=== PATIENT | female | born 1970 | race Caucasian/White ===

== ENCOUNTER 2016-09-25 02:04 | Emergency (ER) | payer MEDICARE, OTHER ==
[2016-09-25] MEDS ORDERED: OXYCODONE-ACETAMINOPHEN 5-325 MG TABLET PO ONE (03:14)
[2016-09-25] MEDS ORDERED: TRAMADOL HCL 50 MG TABLET PO ONE (03:24)
--- NOTE | 2016-09-25 03:30 | ER Document Report ---
ED General - General Chief Complaint: Ankle Injury Stated Complaint: ANKLE PAIN Mode of Arrival: Wheelchair Information source: Patient Notes: 46-year-old female history of multiple sclerosis presents with complaints of right ankle pain after she fell. Patient denies any other injuries. Patient has a history of a left fibular fracture TRAVEL OUTSIDE OF THE [place] IN LAST 30 DAYS: No - HPI Onset: Just prior to arrival Onset/Duration: Sudden Quality of pain: Achy Severity: Moderate Pain Level: 2 Associated symptoms: Body/muscle aches, Other Exacerbated by: Movement Relieved by: Denies Similar symptoms previously: Yes Recently seen / treated by doctor: Yes - Related Data Allergies/Adverse Reactions: Tegaderm Allergy (Uncoded 12/26/14 10:41) Rash Past Medical History - Social History Smoking Status: Never Smoker Cigarette use (# per day): No Chew tobacco use (# tins/day): No Smoking Education Provided: No Family History: Reviewed & Not Pertinent Patient has suicidal ideation: No Patient has homicidal ideation: No - Past Medical History Cardiac Medical History: Denies: Hx Coronary Artery Disease, Hx Heart Attack, Hx Hypertension Pulmonary Medical History: Denies: Hx Asthma, Hx Bronchitis, Hx COPD, Hx Pneumonia Neurological Medical History: Reports: Hx Seizures - started 2004, on medications. Denies: Hx Cerebrovascular Accident Renal/ Medical History: Denies: Hx Peritoneal Dialysis Musculoskeltal Medical History: Denies Hx Arthritis - Immunizations Hx Diphtheria, Pertussis, Tetanus Vaccination: Yes Review of Systems - Review of Systems Notes: REVIEW OF SYSTEMS: CONSTITUTIONAL : Denies fever, chills, or sweats. Denies recent illness. EENT: Denies eye, ear, throat, or mouth pain or symptoms. Denies nasal or sinus congestion or discharge. Denies throat, tongue, or mouth swelling or difficulty swallowing. CARDIOVASCULAR: Denies chest pain. Denies palpitations or racing or irregular heart beat. Denies ankle edema. RESPIRATORY: Denies cough, cold, or chest congestion. Denies shortness of breath, difficulty breathing, or wheezing. GASTROINTESTINAL: Denies abdominal pain or distention. Denies nausea, vomiting , or diarrhea. Denies blood in vomitus, stools, or per rectum. Denies black, tarry stools. Denies constipation. GENITOURINARY: Denies difficulty urinating, painful urination, burning, frequency, blood in urine, or discharge. FEMALE GENITOURINARY: Denies vaginal bleeding, heavy or abnormal periods, irregular periods. Denies vaginal discharge or odor. MUSCULOSKELETAL: Admits to ankle pain on the right SKIN: Denies rash, lesions or sores. HEMATOLOGIC : Denies easy bruising or bleeding. LYMPHATIC: Denies swollen, enlarged glands. NEUROLOGICAL: Denies confusion or altered mental status. Denies passing out or loss of consciousness. Denies dizziness or lightheadedness. Denies headache. Denies weakness or paralysis or loss of use of either side. Denies problems with gait or speech. Denies sensory loss, numbness, or tingling. Denies seizures. PSYCHIATRIC: Denies anxiety or stress. Denies depression, suicidal ideation, or homicidal ideation. ALL OTHER SYSTEMS REVIEWED AND NEGATIVE. Dictation was performed using [email or web address] voice recognition software PHYSICAL EXAMINATION: GENERAL: Well-appearing, well-nourished and in no acute distress. HEAD: Atraumatic, normocephalic. EYES: Pupils equal round extraocular movements intact, conjunctiva are normal. ENT: Nares patent NECK: Normal range of motion LUNGS: No respiratory distress Musculoskeletal: Right ankle is edematous tender to palpation worst in the right lateral malleolar region NEUROLOGICAL: Normal speech, normal gait. PSYCH: Normal mood, normal affect. SKIN: Warm, Dry, normal turgor, no rashes or lesions noted. Physical Exam - Vital signs Vitals: Temp Pulse Resp BP Pulse Ox 97.7 F 77 18 103/58 L 99 09/25/16 02:31 09/25/16 02:31 09/25/16 02:31 09/25/16 02:31 09/25/16 02:31 Course - Re-evaluation Re-evalutation: 09/25/16 03:35 Fractures noted of the fibular. Patient given pain control splint placed patient instructed to follow-up with her own orthopedic physician immediately for evaluation After performing a Medical Screening Examination, I estimate there is LOW risk for INTRACRANIAL HEMORRHAGE, UNSTABLE SPINE FRACTURE, CENTRAL CORD SYNDROME, CAUDA EQUINA, THORACIC AORTIC DISSECTION, PNEUMOTHORAX, PERFORATED BOWEL, RUPTURED ABDOMINAL AORTIC ANEURYSM, ACUTE TENDON RUPTURE, COMPARTMENT SYNDROME, or OPEN FRACTURE, thus I consider the discharge disposition reasonable. Also, there is no evidence or peritonitis, sepsis, or toxicity. I have reevaluated this patient multiple times and no significant life threatening changes are noted. The patient and I have discussed the diagnosis and risks, and we agree with discharging home to follow-up with their primary doctor with the understanding that symptoms and presentations can change. We also discussed returning to the Emergency Department immediately if new or worsening symptoms occur. We have discussed the symptoms which are most concerning (e.g., bloody stool, fever, changing or worsening pain, vomiting) that necessitate immediate return. - Vital Signs Vital signs: Temp Pulse Resp BP Pulse Ox 97.7 F 77 18 103/58 L 99 09/25/16 02:31 09/25/16 02:31 09/25/16 02:31 09/25/16 02:09/25/16 02:31 - Diagnostic Test Radiology reviewed: Image reviewed, Reports reviewed - Right fibular fracture Procedures - Immobilization Right Ankle Time completed: 03:36 Pre-Proc Neuro Vasc Exam: Normal Immobilizer type: Short Leg Posterior Performed by: PCT Post-Proc Neuro Vasc Exam: Normal Alignment checked and good: Yes Discharge - Discharge Clinical Impression: Closed fibular fracture Qualifiers: Encounter type: initial encounter Fibula location: distal Fracture morphology: unspecified fracture morphology Laterality: right Qualified Code(s): S82.831A - Other fracture of upper and lower end of right fibula, initial encounter for closed fracture Ankle injury Qualifiers: Encounter type: initial encounter Laterality: right Qualified Code(s): S99.911A - Unspecified injury of right ankle, initial encounter Condition: Stable Disposition: HOME, SELF-CARE Instructions: Ankle Stirrup Splint ([facility]) Additional Instructions: Please follow-up with your orthopedic physician in 1-2 days or return immediately if there are any other concerns Prescriptions: Tramadol HCl 50 mg PO Q8 #30 tablet
[2016-09-25 08:33] VITALS: BP 108/52
== END 2016-09-25 04:10 | disposition home or self-care (01) ==
LOC: ER 02:04
PROC: 2W3QX1Z Immobilization of Right Lower Leg using Splint (ICD-10-PCS; principal; 2016-09-25)
DX: S82.831A Other fracture of upper and lower end of right fibula, initial encounter for closed fracture (principal); W01.0XXA Fall on same level from slipping, tripping and stumbling without subsequent striking against object, initial encounter; Y93.89 Activity, other specified; G35 Multiple sclerosis; Z88.8 Allergy status to other drugs, medicaments and biological substances
CPT/HCPCS: 99283; 73610; 29515; A9270

== ENCOUNTER → 2017-08-26 | Outpatient (CLI) | payer MEDICARE ==
--- NOTE | 2017-08-26 11:15 | RADIOLOGY REPORT (SQ) ---
EXAM DESCRIPTION: MRI LT LOWER JOINT WITHOUT COMPLETED DATE/TIME: 08/26/2017 10:34 am REASON FOR STUDY: LEFT HIP PAIN (M25.552) M25.552 PAIN IN LEFT HIP COMPARISON: None. TECHNIQUE: Lefthip images acquired and stored on PACS. Multiplanar images to include fat sensitive s equences as T1, fluid sensitive sequences as T2/STIR and gradient echo sequences. Large FOV fat and f luid sensitive sequences include pelvis and opposite hip. LIMITATIONS: None. FINDINGS: BONE CORTEX AND MARROW: No generalized marrow replacement. No occult fracture. No worriso me bone lesions. LEFT HIP: FEMORAL HEAD: No occult fracture. No osteophytes or subchondral cysts. Normal sphericity of femoral h ead/neck junction. No acetabular dysplasia. No evidence femoroacetabular impingement. No significant effusion. ACETABULUM: No acetabular dysplasia. No subchondral cysts. LABRUM: No loss of cartilage or delamination. Labrum is intact. No paralabral cysts. TROCHANTER: Small trochanteric bursal effusion. There is edema/fluid at the insertions of the gluteu s medius and gluteus minimus, from trochanteric bursitis and inflammation. RIGHT HIP: Limited evaluation. No worrisome bone lesions. No significant effusion. Trace fluid in the trochanteric bursa with edema at the insertions of the gluteus medius and gluteus minimus on the greater trochanter. PELVIS, LOWER LUMBAR SPINE, SACROILIAC JOINTS: PELVIS : No insufficiency/stress fractures. No significant degenerative changes. Sacroiliac joints normal. L SPINE: No significant osteophytes or degenerative changes of the visualized lumbar spine. MUSCLES AND SOFT TISSUES: Adductors and piriformis normal. Abductors and greater trochanteric bursa n ormal without edema or fluid. Iliopsoas bursa without fluid. Hamstring attachments without edema or t ear. PELVIC SOFT TISSUES: Normal size uterus and ovaries. Incidental finding of 2.6 cm and 2.4 cm fundal uterine fibroids SCIATIC NERVE: Identified, without masses or abnormal signal. OTHER: No other significant finding. IMPRESSION: Trochanteric bursitis left greater than right TECHNICAL DOCUMENTATION: JOB ID: [id number]- All Rights Reserved Reading location - IP/workstation name: [email or web address] [id number]
== END ==
LOC: RAD 09:21
DX: M25.552 Pain in left hip (principal)

== ENCOUNTER 2018-02-07 13:12 | Emergency (ER) | payer MEDICARE ==
--- NOTE | 2018-02-07 15:07 | RADIOLOGY REPORT (SQ) ---
EXAM DESCRIPTION: ANKLE LEFT COMPLETE COMPLETED DATE/TIME: 02/07/2018 2:31 pm REASON FOR STUDY: injury COMPARISON: None. NUMBER OF VIEWS: Three views. TECHNIQUE: AP, lateral, and oblique radiographic images acquired of the left ankle. LIMITATIONS: None. FINDINGS: MINERALIZATION: Normal. BONES: There is a mildly displaced fracture at the medial malleolus. There is some mildly displaced spiral fracture at the distal fibula. There is mild widening of the tibiotalar joint. Bony spurs ar e seen at the calcaneus. SOFT TISSUES: There is diffuse soft tissue swelling at the ankle. IMPRESSION: Bimalleolar fracture at the left ankle with overlying soft tissue swelling. TECHNICAL DOCUMENTATION: JOB ID: [id number] 2010 [employer])- All Rights Reserved Reading location - IP/workstation name: [email or web address]
[2018-02-07] MEDS ORDERED: HYDROCODONE/ACETAMINOPHEN 5-325 MG (6 TAB/ER DISP) PO PRN (15:23)
--- NOTE | 2018-02-07 15:44 | ER Document Report ---
HPI - HPI Pain Level: 3 - CONSTITUTIONAL Notes: Patient with complaint of left ankle pain after suffering a mechanical fall at home. - REPRODUCTIVE Reproductive: DENIES: : Past Medical History - General Information source: Patient - Social History Smoking Status: Never Smoker Frequency of alcohol use: None Drug Abuse: None Family History: Reviewed & Not Pertinent - Past Medical History Cardiac Medical History: Denies: Hx Coronary Artery Disease, Hx Heart Attack, Hx Hypertension Pulmonary Medical History: Denies: Hx Asthma, Hx Bronchitis, Hx COPD, Hx Pneumonia Neurological Medical History: Reports: Hx Seizures - started 2004, on medications. Denies: Hx Cerebrovascular Accident Renal/ Medical History: Denies: Hx Peritoneal Dialysis Musculoskeletal Medical History: Denies Hx Arthritis - Immunizations Hx Diphtheria, Pertussis, Tetanus Vaccination: Yes Vertical Provider Document - INFECTION CONTROL TRAVEL OUTSIDE OF THE [place] IN LAST 30 DAYS: No Course - Re-evaluation Re-evalutation: Bimalleolar fracture noted to the left lower extremity. Patient will be placed in a splint, given crutches and pain medications and instructed to follow-up with Orth O. Patient verbalizes understanding of absolutely no weightbearing. - Vital Signs Vital signs: Temp Pulse Resp BP Pulse Ox 97.8 F 65 18 105/59 L 99 02/07/18 13:29 02/07/18 13:29 02/07/18 13:29 02/07/18 13:29 02/07/18 13:29 Procedures - Immobilization Posterior ankle Pre-Proc Neuro Vasc Exam: Normal Immobilizer type: Posterior ankle Performed by: PCT Post-Proc Neuro Vasc Exam: Normal Alignment checked and good: Yes Discharge - Discharge Clinical Impression: Bimalleolar ankle fracture Qualifiers: Encounter type: initial encounter Fracture type: closed Laterality: left Qualified Code(s): S82.842A - Displaced bimalleolar fracture of left lower leg, initial encounter for closed fracture Condition: Stable Disposition: HOME, SELF-CARE Additional Instructions: Fractured Ankle (Bimalleolar) You have a fracture of both bones of the lower leg at the ankle. If there is dispacement of the bones from their proper alignment, manipulation of the ankle and foot may be necessary to re-align the bones properly. This fracture wll require a cast for healing and some of the more serious fractures of this type will require surgery. If surgery is not required, the bones requires only protection and sufficient time for healing. The initial treatment is immobilization, elevation, and ice packs. Depending on the type of fracture, immobilization may consist of a splint or cast. The length of time required for healing depends on the type of fracture. You will be referred to an orthopedic surgeon who will re-assess you periodically to make certain that the bone heals without complications. It's important that you follow the instructions given you. Take ibuprofen 600 mg every 6 hours for pain. Use the pain medications I am giving you for severe pain. Please ice and elevate your extremity. Absolutely no weightbearing until you are seen by orthopedics. Please call them early next week to get an appointment. Prescriptions: Hydrocodone/Acetaminophen [Hydrocodon-Acetaminophen 5-325] 1 each PO Q4H #12 tablet Referrals: KRYSTLE VICENTE III, MD, PHD [Primary Care Provider] - Follow up as needed KERRI MATOS MD [ACTIVE STAFF] - Follow up as needed
[2018-02-07 16:26] VITALS: BP 102/65
== END 2018-02-07 16:40 | disposition home or self-care (01) ==
LOC: ER 13:12
PROC: 2W3RX1Z Immobilization of Left Lower Leg using Splint (ICD-10-PCS; principal; 2018-02-07)
DX: S82.842A Displaced bimalleolar fracture of left lower leg, initial encounter for closed fracture (principal); M25.572 Pain in left ankle and joints of left foot; W19.XXXA Unspecified fall, initial encounter; Y92.009 Unspecified place in unspecified non-institutional (private) residence as the place of occurrence of the external cause
CPT/HCPCS: 99283; 73610; 29515; A9270

== ENCOUNTER 2018-07-30 12:13 | Outpatient (CLI) | payer MEDICARE ==
[~2018-07-30 12:13] MED LIST: METHYLPREDNISOLONE SOD SUCC IV PRN; NORMAL SALINE IV PRN
[2018-07-30 12:58] VITALS: BP 120/71
== END 2018-07-30 14:14 | disposition home or self-care (01) ==
LOC: II 12:13
PROVIDERS: ATTEND Family Medicine
PROC: 3E0333Z Introduction of Anti-inflammatory into Peripheral Vein, Percutaneous Approach (ICD-10-PCS; principal; 2018-07-30)
DX: G35 Multiple sclerosis (principal)
CPT/HCPCS: 96365; J2930; J7050

== ENCOUNTER 2018-07-31 12:16 | Outpatient (CLI) | payer MEDICARE ==
[2018-07-31 12:51] VITALS: BP 94/59
[2018-08-01] MEDS ORDERED: METHYLPREDNISOLONE SOD SUCC IV PRN (06:38)
[2018-08-01] MEDS ORDERED: NORMAL SALINE IV PRN (06:38)
== END 2018-07-31 14:09 | disposition home or self-care (01) ==
LOC: II 12:16 → 5TH 14:07 → II 14:09
PROVIDERS: ATTEND Family Medicine
PROC: 3E0433Z Introduction of Anti-inflammatory into Central Vein, Percutaneous Approach (ICD-10-PCS; principal; 2018-07-31)
DX: G35 Multiple sclerosis (principal)
CPT/HCPCS: 96365; J2930; J7050

== ENCOUNTER 2018-08-01 09:01 | Outpatient (CLI) | payer MEDICARE ==
[2018-08-01 09:45] VITALS: BP 101/68
[2018-08-01] MEDS ORDERED: METHYLPREDNISOLONE SOD SUCC 1,000 MG in DEXTROSE 5%-WATER 100 ML IV ONE (10:00)
[2018-08-01] MEDS ORDERED: METHYLPREDNISOLONE SOD SUCC IV ONE (10:00)
[2018-08-01] MEDS ORDERED: NORMAL SALINE IV ONE (10:00)
== END 2018-08-01 11:23 | disposition home or self-care (01) ==
LOC: II 09:01 → 2S 09:04 → II 11:23
PROVIDERS: ATTEND Family Medicine
PROC: 3E0333Z Introduction of Anti-inflammatory into Peripheral Vein, Percutaneous Approach (ICD-10-PCS; principal; 2018-08-01)
DX: Z76.89 Persons encountering health services in other specified circumstances (principal)
CPT/HCPCS: J2930; J7050; 96365

== ENCOUNTER 2018-08-02 08:45 | Outpatient (CLI) | payer MEDICARE ==
[2018-08-02] MEDS ORDERED: NORMAL SALINE IV ONE (10:30)
[2018-08-02] MEDS ORDERED: METHYLPREDNISOLONE SOD SUCC IV ONE (10:30)
== END 2018-08-02 12:15 | disposition home or self-care (01) ==
LOC: II 08:45 → 5 08:47 → II 12:15
PROVIDERS: ATTEND Hospitalist
PROC: 3E0333Z Introduction of Anti-inflammatory into Peripheral Vein, Percutaneous Approach (ICD-10-PCS; principal; 2018-08-02)
DX: G35 Multiple sclerosis (principal)
CPT/HCPCS: J2930; J7050; 96365

== ENCOUNTER 2019-03-10 07:48 | Outpatient (CLI) | payer MEDICARE ==
[2019-03-10] MEDS ORDERED: DEXTROSE 5% IV PRN (08:16)
[2019-03-10] MEDS ORDERED: WATER IV PRN (08:16)
[2019-03-10] MEDS ORDERED: METHYLPREDNISOLONE SOD SUCC IV PRN ×2 (08:16→08:22)
[2019-03-10 08:17] VITALS: BP 104/62
[2019-03-10] MEDS ORDERED: NORMAL SALINE IV PRN (08:22)
== END 2019-03-10 09:47 | disposition home or self-care (01) ==
LOC: II 07:48 → 5TH 07:51 → II 09:47
PROVIDERS: ATTEND Internal Medicine
PROC: 3E0333Z Introduction of Anti-inflammatory into Peripheral Vein, Percutaneous Approach (ICD-10-PCS; principal; 2019-03-10)
DX: G35 Multiple sclerosis (principal)
CPT/HCPCS: 96365; J2930; J7050; J7060

== ENCOUNTER 2019-03-11 07:45 | Outpatient (CLI) | payer MEDICARE ==
[2019-03-11 09:26] VITALS: BP 102/62
== END 2019-03-11 09:45 | disposition home or self-care (01) ==
LOC: II 07:45 → 5TH 07:47 → II 09:45
PROVIDERS: ATTEND Internal Medicine
PROC: 3E0333Z Introduction of Anti-inflammatory into Peripheral Vein, Percutaneous Approach (ICD-10-PCS; principal; 2019-03-11)
DX: G35 Multiple sclerosis (principal)
CPT/HCPCS: 96365; J2930; J7050

== ENCOUNTER 2019-03-12 07:46 | Outpatient (CLI) | payer MEDICARE ==
[2019-03-12 08:09] VITALS: BP 111/76
== END 2019-03-12 09:20 | disposition home or self-care (01) ==
LOC: II 07:46 → 5TH 07:51 → II 09:20
PROVIDERS: ATTEND Internal Medicine
PROC: 3E0333Z Introduction of Anti-inflammatory into Peripheral Vein, Percutaneous Approach (ICD-10-PCS; principal; 2019-03-12)
DX: G35 Multiple sclerosis (principal)
CPT/HCPCS: 96365; J2930; J7050

== ENCOUNTER → 2019-03-13 | Outpatient (CLI) | payer MEDICARE ==
[~2019-03-13] MED LIST changes: +METHYLPREDNISOLONE SOD SUCC IV ONE; -METHYLPREDNISOLONE SOD SUCC IV PRN; +NORMAL SALINE IV ONE; -NORMAL SALINE IV PRN
== END ==
LOC: ER 11:48
PROVIDERS: ATTEND Internal Medicine
PROC: 3E0333Z Introduction of Anti-inflammatory into Peripheral Vein, Percutaneous Approach (ICD-10-PCS; principal; 2019-03-13)
DX: G35 Multiple sclerosis (principal)
CPT/HCPCS: 96365; G0463; J2930; J7050; 99211

== ENCOUNTER → 2019-09-08 | Outpatient (CLI) | payer MEDICARE ==
--- NOTE | 2019-09-08 10:51 | RADIOLOGY REPORT (SQ) ---
EXAM DESCRIPTION: LUMBAR SPINE COMPLETE IMAGES COMPLETED DATE/TIME: 09/08/2019 10:44 am REASON FOR STUDY: LBP M54.5 LOW BACK PAIN M53.3 SACROCOCCYGEAL DISORDERS, NOT ELSEWHERE CLASSIFIED COMPARISON: None. NUMBER OF VIEWS: Five views including obliques. TECHNIQUE: AP, lateral, oblique, and sacral radiographic images acquired of the lumbar spine. LIMITATIONS: None. FINDINGS: MINERALIZATION: Normal. SEGMENTATION: Normal. No transitional anatomy. ALIGNMENT: Normal. VERTEBRAE: Maintained height. No fracture or worrisome bone lesion. DISCS: Preserved height. No significant osteophytes or end plate irregularity. POSTERIOR ELEMENTS: Pedicles and facets are intact. No pars defect or posterior arch defects. HARDWARE: None in the spine. PARASPINAL SOFT TISSUES: Normal. PELVIS: Intact as visualized. No fractures or worrisome bone lesions. SI joints intact. OTHER: No other significant finding. IMPRESSION: NORMAL 5 VIEW LUMBAR SPINE. TECHNICAL DOCUMENTATION: JOB ID: [id number] 2010 [employer]- All Rights Reserved Reading location - IP/workstation name: [email or web address]
--- NOTE | 2019-09-08 10:52 | RADIOLOGY REPORT (SQ) ---
EXAM DESCRIPTION: PELVIS AP IMAGES COMPLETED DATE/TIME: 09/08/2019 10:44 am REASON FOR STUDY: SACROCOCCYGEAL DISORDERS, NOT ELSEWHERE CLASSIFIED M54.5 LOW BACK PAIN M53.3 SAC ROCOCCYGEAL DISORDERS, NOT ELSEWHERE CLASSIFIED COMPARISON: None. NUMBER OF VIEWS: One view TECHNIQUE: AP Pelvis LIMITATIONS: None. FINDINGS: MINERALIZATION: Normal. HIPS: No acute fracture or dislocation. No worrisome bone lesions. PELVIS AND SACRUM: No acute fracture or dislocation. No worrisome bone lesions. PUBIS AND ISCHIUM: No acute fracture. LOWER LUMBAR SPINE: No significant findings as visualized. SOFT TISSUES: No findings. OTHER: No other significant finding. IMPRESSION: NEGATIVE STUDY OF THE PELVIS. COMMENT: Pelvic fractures are often occult on plain radiographs. If strong clinical suspicion for f racture, recommend CT or MR. TECHNICAL DOCUMENTATION: JOB ID: [id number] 2010 [employer]- All Rights Reserved Reading location - IP/workstation name: [email or web address]
== END ==
LOC: OD 10:22
PROVIDERS: ATTEND Physician Assistant
DX: M54.5 Low back pain (principal); M53.3 Sacrococcygeal disorders, not elsewhere classified
CPT/HCPCS: 72110; 72170

== ENCOUNTER → 2020-05-10 | Outpatient (CLI) | payer MEDICARE ==
--- NOTE | 2020-05-10 12:30 | RADIOLOGY REPORT (SQ) ---
EXAM DESCRIPTION: CERV SP 3 VIEW OR LESS IMAGES COMPLETED DATE/TIME: 05/10/2020 8:52 am REASON FOR STUDY: (M54.12)RADICULOPATHY, CERVICAL REGION M54.12 RADICULOPATHY, CERVICAL REGION COMPARISON: None. NUMBER OF VIEWS: Two views. TECHNIQUE: Lateral flexion and extension views of the cervical spine were obtained. LIMITATIONS: None. FINDINGS: MINERALIZATION: Normal. ALIGNMENT: No dynamic subluxation with flexion and extension. VERTEBRAE: The cervical vertebral body heights are preserved. DISCS: ACDF hardware from C4-C7. The hardware is intact. HARDWARE: As above. SOFT TISSUES: No thickening of the prevertebral soft tissues. OTHER: No other findings. IMPRESSION: ACDF hardware from C4-C7. The hardware is intact. There is no dynamic subluxation with flexion and extension. TECHNICAL DOCUMENTATION: JOB ID: [id number] 2010 [employer]- All Rights Reserved Reading location - IP/workstation name: [email or web address]
== END ==
LOC: RAD 08:22
PROVIDERS: ATTEND Specialist
DX: M54.12 Radiculopathy, cervical region (principal)
CPT/HCPCS: 72040

== ENCOUNTER → 2020-06-22 | Outpatient (CLI) | payer MEDICARE ==
--- NOTE | 2020-06-22 12:08 | RADIOLOGY REPORT (SQ) ---
EXAM DESCRIPTION: CERV SP 3 VIEW OR LESS IMAGES COMPLETED DATE/TIME: 06/22/2020 9:52 am REASON FOR STUDY: CERVICAL RADICULOPATHY COMPARISON: 05/10/2020 NUMBER OF VIEWS: Two view. TECHNIQUE: Lateral views of the cervical spine with flexion and extension. LIMITATIONS: None. FINDINGS: MINERALIZATION: Normal. ALIGNMENT: Anatomic. FLEXION/EXTENSION: No instability. VERTEBRAE: Vertebral bodies of normal height. DISCS: No significant osteophytes or sclerosis. Disc height maintained. LATERAL AND POSTERIOR ELEMENTS: Facets, lateral masses, and spinous processes without significant fin dings. HARDWARE: ACDF hardware spans the C4 through C7 levels with interbody spacers. There is no evidence of hardware fracture, perihardware lucency or migration. SOFT TISSUES: No masses or calcifications. Lung apices clear. OTHER: No other significant finding. IMPRESSION: Status post C4-C7 ACDF without evidence of hardware complication. No abnormal translation on dynamic imaging. TECHNICAL DOCUMENTATION: JOB ID: [id number] [employer]- All Rights Reserved Reading location - IP/workstation name: [email or web address]
== END ==
LOC: RAD 09:34
PROVIDERS: ATTEND Specialist
DX: M54.12 Radiculopathy, cervical region (principal)
CPT/HCPCS: 72040